=== PATIENT | female | born 1995 | race African-American/Black ===

== ENCOUNTER 2019-04-29 23:50 | Emergency (ER) | payer SELFPAY ==
[~2019-04-29] VITALS: Ht 167.6 cm; Wt 72.6 kg
--- NOTE | 2019-04-30 00:30 | NUR ---
ED Nurse Note: Patient presents with complaints of excessive bilateral back/flank pain that radiates to abdomen x 1 day.
[2019-04-30 00:40] VITALS: BP 102/66
[2019-04-30 01:00] LABS: BASOPHILS % (AUTO) 0.7 % (0.0-2.0); EOSINOPHILS % (AUTO) 0.2 % (0.0-3.0); HEMATOCRIT 38.5 % (37.0-47.0); LYMPHOCYTES % (AUTO) 7.1 % (20.0-45.0); MEAN CORPUSCULAR VOLUME 85 FL (80-99); NEUTROPHILS % (AUTO) 80.1 % (45.0-75.0); PLATELET COUNT 241 K/UL (150-450); RED CELL DISTRIBUTION WIDTH 11.9 % (11.6-14.8); WHITE BLOOD COUNT 11.3 K/UL (4.8-10.8)
[2019-04-30] MEDS ORDERED: Acetaminophen 500mg (ES) tab ORAL ONE (01:00)
--- NOTE | 2019-04-30 01:12 | NUR ---
ED Nurse Note: Patient tolerated medication well, still has complaints of pain, will continue to monitor.
[2019-04-30 01:16] LABS: ANION GAP 7 mmol/L (5-15); BLOOD UREA NITROGEN 9 mg/dL (7-18); CALCIUM 9.5 MG/DL (8.5-10.1); CARBON DIOXIDE 27 MMOL/L (21-32); CHLORIDE 98 MMOL/L (98-107); POTASSIUM 3.7 MMOL/L (3.5-5.1); SODIUM 132 MMOL/L (136-145)
[2019-04-30 01:26] LABS: ALANINE AMINOTRANSFERASE 24 U/L (12-78); ALBUMIN 3.7 G/DL (3.4-5.0); ALBUMIN/GLOBULIN RATIO 0.8 (1.0-2.7); ALKALINE PHOSPHATASE 69 U/L (46-116); ASPARTATE AMINO TRANSFERASE 24 U/L (15-37); BILIRUBIN,DIRECT 0.3 MG/DL (0.0-0.3); BILIRUBIN,TOTAL 1.3 MG/DL (0.2-1.0)
[2019-04-30] MEDS ORDERED: Morphine Sulfate 4mg/ml Inj (IV USE ONLY) IVP ONE (01:30)
--- NOTE | 2019-04-30 02:26 | NUR ---
ED Nurse Note: Patient has complaints of intermittent increases in pain. ERMD informed.
[2019-04-30] MEDS ORDERED: Ketorolac 30mg Inj IV ONE (02:30)
[2019-04-30] MEDS ORDERED: Isovue-300 100ml vial INJ PRN (02:30)
[2019-04-30 02:36] LABS: APPEARANCE,URINE SLIGHTLY CLOUDY; BILIRUBIN, URINE NEGATIVE (NEGATIVE); COLOR,URINE PALE YELLOW; GLUCOSE, URINE (UA) NEGATIVE (NEGATIVE); KETONES,URINE 1+ (NEGATIVE); LEUKOCYTE ESTERASE ,URINE 3+ (NEGATIVE); NITRITE,URINE POSITIVE (NEGATIVE); PH,URINE 6.5 (4.5-8.0); PROTEIN,URINE 2+ (NEGATIVE); UROBILINOGEN,URINE NORMAL MG/DL (0.0-1.0)
[2019-04-30] MEDS ORDERED: cefTRIAXone 1 GM in NS 55 ML IVPB ONE (03:15)
[2019-04-30 03:40] VITALS: BP 93/49
--- NOTE | 2019-04-30 03:42 | NUR ---
ED Nurse Note: Patient is resting comfortably with brother at bedside awaiting discharge instructions.
--- NOTE | 2019-04-30 03:58 | NUR ---
ED Nurse Note: Patient cleared for discharge, Patient verbalized understanding of discharge instructions. Patient ID band removed, patient IV removed Patient A&Ox4, ambulatory with steady gait. Patient vital signs are stable. Patient departed with all belongings accompanied by brother.
[2019-04-30] MEDS ORDERED: ACETAMINOPHEN-1 EAC1 ORAL (04:07)
[2019-04-30] MEDS ORDERED: IBUPROFEN600 MG ORAL (04:07)
[2019-04-30] MEDS ORDERED: CEPHALEXIN500 MG ORAL (04:07)
[2019-04-30] MEDS ORDERED: ONDANSETRON ODT4 MG BC (04:07)
--- NOTE | 2019-04-30 06:52 | Emergency Room Report ---
History of Present Illness General Chief Complaint: Fever Source: Patient Present Illness HPI 24-year-old female presents ED for evaluation. Walked in complaining of fever and back pain. Started 2 days ago. Febrile in triage. Pain is throbbing, 8 out of 10, nonradiating. Denies cough or sore throat. Complaining of increased urinary hesitancy. Denies sick contacts or recent travel. No other aggravating relieving factors. Denies any other associated symptoms Allergies: Coded Allergies: METRONIDAZOLE (Verified Allergy, Unknown, 04/30/19) Patient History Past Medical History: none Past Surgical History: none Pertinent Family History: none Social History: Denies: smoking, alcohol use, drug use Last Menstrual Period: Apr 03 2019 Now: No Immunizations: UTD Reviewed Nursing Documentation: PMH: Agreed; PSxH: Agreed Nursing Documentation-PMH Past Medical History: No Stated History Review of Systems All Other Systems: negative except mentioned in HPI Physical Exam Vital Signs Date Time Temp Pulse Resp B/P (MAP) Pulse Ox O2 Delivery O2 Flow Rate FiO2 04/30/19 00:25 102.7 118 20 102/66 (78) 98 04/30/19 03:40 Room Air Sp02 EP Interpretation: reviewed, normal General Appearance: alert, GCS 15, non-toxic, mild distress Head: normocephalic, atraumatic Eyes: bilateral eye normal inspection, bilateral eye PERRL ENT: hearing grossly normal, normal pharynx, no angioedema, normal voice Neck: full range of motion, supple/symm/no masses Respiratory: chest non-tender, lungs clear, normal breath sounds, speaking full sentences Cardiovascular #1: regular rate, rhythm, no edema Cardiovascular #2: 2+ carotid (R), 2+ carotid (L), 2+ radial (R), 2+ radial (L) , 2+ dorsalis pedis (R), 2+ dorsalis pedis (L) Gastrointestinal: normal bowel sounds, non tender, soft, non-distended, no guarding, no rebound Rectal: deferred Genitourinary: normal inspection, CVA tenderness (R), CVA tenderness (L) Musculoskeletal: back normal, gait/station normal, normal range of motion, non- tender Neurologic: alert, oriented x3, responsive, motor strength/tone normal, sensory intact, speech normal Psychiatric: judgement/insight normal, memory normal, mood/affect normal, no suicidal/homicidal ideation Reflexes: 3+ bicep (R), 3+ bicep (L), 3+ tricep (R), 3+ tricep (L), 3+ knee (R) , 3+ knee (L) Skin: normal color, no rash, warm/dry, well hydrated Lymphatic: no adenopathy Medical Decision Making Diagnostic Impression: Primary Impression: Pyelonephritis ER Course Hospital Course 24year-old female presents to ED complaining of flank pain, fever Differential diagnoses include: UTI, cystitis, pyelonephritis Clinical course Patient placed on stretcher. After initial history and physical I ordered UA, labs, IV fluids, pain Meds labs - leukocytosis noted, hbhematocrit stable, electrolytes okay, UA grossly positive Given IV antibiotics. Discussed findings with patient. Given option for admission but patient states she would prefer to be discharged with antibiotics. Does not have a PMD. Will provide referrals Diagnosis - pyelonephritis Stable and discharged home with prescriptions for Rx Motrin, Tylenol #3, keflex. Followup with PMD. Return to ED if symptoms recur or worsen Labs Test 04/30/19 00:39 04/30/19 01:47 White Blood Count 11.3 K/UL (4.8-10.8) Red Blood Count 4.50 M/UL (4.20-5.40) Hemoglobin 13.0 G/DL (12.0-16.0) Hematocrit 38.5 % (37.0-47.0) Mean Corpuscular Volume 85 FL (80-99) Mean Corpuscular Hemoglobin 28.9 PG (27.0-31.0) Mean Corpuscular Hemoglobin Concent 33.8 G/DL (32.0-36.0) Red Cell Distribution Width 11.9 % (11.6-14.8) Platelet Count 241 K/UL (150-450) Mean Platelet Volume 6.1 FL (6.5-10.1) Neutrophils (%) (Auto) 80.1 % (45.0-75.0) Lymphocytes (%) (Auto) 7.1 % (20.0-45.0) Monocytes (%) (Auto) 12.0 % (1.0-10.0) Eosinophils (%) (Auto) 0.2 % (0.0-3.0) Basophils (%) (Auto) 0.7 % (0.0-2.0) Sodium Level 132 MMOL/L (136-145) Potassium Level 3.7 MMOL/L (3.5-5.1) Chloride Level 98 MMOL/L (98-107) Carbon Dioxide Level 27 MMOL/L (21-32) Anion Gap 7 mmol/L (5-15) Blood Urea Nitrogen 9 mg/dL (7-18) Creatinine 1.0 MG/DL (0.55-1.30) Estimat Glomerular Filtration Rate > 60 mL/min (>60) Glucose Level 126 MG/DL (74-106) Calcium Level 9.5 MG/DL (8.5-10.1) Total Bilirubin 1.3 MG/DL (0.2-1.0) Direct Bilirubin 0.3 MG/DL (0.0-0.3) Aspartate Amino Transf (AST/SGOT) 24 U/L (15-37) Alanine Aminotransferase (ALT/SGPT) 24 U/L (12-78) Alkaline Phosphatase 69 U/L (46-116) Total Protein 8.6 G/DL (6.4-8.2) Albumin 3.7 G/DL (3.4-5.0) Globulin 4.9 g/dL Albumin/Globulin Ratio 0.8 (1.0-2.7) Lipase 111 U/L (73-393) Human Chorionic Gonadotropin, Qual Negative (NEGATIVE) Urine Color Pale yellow Urine Appearance Slightly cloudy Urine pH 6.5 (4.5-8.0) Urine Specific [place] 1.005 (1.005-1.035) Urine Protein 2+ (NEGATIVE) Urine Glucose (UA) Negative (NEGATIVE) Urine Ketones 1+ (NEGATIVE) Urine Blood 4+ (NEGATIVE) Urine Nitrite Positive (NEGATIVE) Urine Bilirubin Negative (NEGATIVE) Urine Urobilinogen Normal MG/DL (0.0-1.0) Urine Leukocyte Esterase 3+ (NEGATIVE) Urine RBC 5-10 /HPF (0 - 2) Urine WBC 60-80 /HPF (0 - 2) Urine Squamous Epithelial Cells Occasional /LPF Urine Bacteria Moderate /HPF (NONE) Urine HCG, Qualitative Negative (NEGATIVE) Last Vital Signs Date Time Temp Pulse Resp B/P (MAP) Pulse Ox O2 Delivery O2 Flow Rate FiO2 04/30/19 03:40 101.0 116 26 93/49 95 Room Air Status: improved Disposition: HOME, SELF-CARE Condition: Stable Scripts Ondansetron Odt* (ZOFRAN ODT*) 4 Mg Tab.rapdis 4 MG BC EVERY 6 HOURS PRN for Nausea & Vomiting, #20 TAB 0 Refills Prov: Tan Moffett MD 04/30/19 Cephalexin* (KEFLEX*) 500 Mg Capsule 500 MG ORAL EVERY 6 HOURS for 7 Days, CAP Prov: Tan Moffett MD 04/30/19 Acetaminophen With Codeine (T#3) (TYLENOL #3 TAB*) Y Tab 1 TAB ORAL Q8H PRN for For Pain, #12 TAB Prov: Tan Moffett MD 04/30/19 Ibuprofen* (MOTRIN*) 600 Mg Tablet 600 MG ORAL Q8H PRN for For Pain, #30 TAB 0 Refills Prov: Tan Moffett MD 04/30/19 Referrals: NOT CHOSEN IPA/,REFERRING (PCP) [facility] Patient Instructions: Pyelonephritis, Adult Tan Moffett MD Apr 30, 2019 06:51
== END 2019-04-30 04:15 | disposition home or self-care (01) ==
LOC: EMR 04-30 01:14
DX: N12 Tubulo-interstitial nephritis, not specified as acute or chronic (principal); M54.9 Dorsalgia, unspecified; Z88.8 Allergy status to other drugs, medicaments and biological substances; D72.829 Elevated white blood cell count, unspecified
CPT/HCPCS: 36415; 80053; 81003; 81025; 82248; 83690; 84703; 85025; 87086; 87181; 96361; 96365; 96375; 99284; J0696; J1885; J2270; J2405; S0028